=== PATIENT | male | born 1975 | race African-American/Black ===

== ENCOUNTER 2020-07-27 05:04 | Emergency (ER) | payer BC ==
[~2020-07-27] VITALS: Ht 172.7 cm; Wt 115.7 kg
[~2020-07-27 05:04] MED LIST: COLACE100 MG PO; DILAUDID2 M1 PO; NOHOMEMEDICATIONS; NORCO 5-325 TA1 EACH PO; ZOFRAN 4 MG ORAL4 MG PO
[2020-07-27] MEDS ORDERED: FLOMAX0.4 MG PO (06:54)
[2020-07-27] MEDS ORDERED: NORCO 10-325 T1 EACH PO (06:54)
[2020-07-27] MEDS ORDERED: ZOFRAN ODT4 MG PO (06:54)
[2020-07-27 07:04] VITALS: BP 165/77
[2020-07-27 07:09] LABS: ABSOLUTE NEUTROPHILS 5.6 thou/uL (1.4-8.2); BASOPHILS 0.5 % (0.0-2.0); EOSINOPHILS 3.1 % (0.0-3.0); HEMATOCRIT 39.8 % (42.0-52.0); HEMOGLOBIN 13.5 gm/dL (14.0-18.0); LYMPHOCYTES 25.2 % (24.0-44.0); MCH 26.6 pg (26.0-34.0); MCHC 33.8 g/dL (28.0-37.0); MCV 78.7 fL (80.0-100.0); MONOCYTES 3.2 % (1.0-8.0); PLATELET COUNT 223 thou/uL (150-400); RBC 5.06 mil/uL (4.50-6.00); RDW 14.2 % (10.5-14.5); WBC 8.3 thou/uL (4.0-11.0)
[2020-07-27 07:14] LABS: CALCIUM 9.2 mg/dL (8.5-10.1); CREATININE 1.6 mg/dL (0.7-1.3); POTASSIUM 3.4 mmol/L (3.5-5.1)
== END 2020-07-27 07:00 | disposition home or self-care (01) ==
LOC: ER 05:04
PROVIDERS: Emergency Medicine
DX: R10.9 Unspecified abdominal pain (principal); E11.9 Type 2 diabetes mellitus without complications; I10 Essential (primary) hypertension; E78.00 Pure hypercholesterolemia, unspecified; Z87.442 Personal history of urinary calculi; Z91.041 Radiographic dye allergy status